=== PATIENT | male | born 1970 | race Native Hawaiian/Other Pacific Islander ===

== ENCOUNTER 2021-03-19 13:53 | Emergency (ER) | payer OTHER ==
[2021-03-19] MEDS ORDERED: HYDROcodone/ACETAMINOPHEN 10-325MG TAB PO ONE (15:00)
[2021-03-19] MEDS ORDERED: TETANUS,DIPH,PERTUSS(ACELL) VACCINE 0.5 ML SYRINGE IM ONE (15:00)
[2021-03-19] MEDS ORDERED: LIDOCAINE 2%/EPINEPHRINE 1:200,000 VIAL (20 ML) INFILTRATI ONE (15:00)
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
[2021-03-19 16:17] VITALS: BP 160/110
== END 2021-03-19 16:46 | disposition home or self-care (01) ==
LOC: ED 13:53
DX: S51.011A Laceration without foreign body of right elbow, initial encounter (principal); S13.4XXA Sprain of ligaments of cervical spine, initial encounter; S00.93XA Contusion of unspecified part of head, initial encounter; S39.92XA Unspecified injury of lower back, initial encounter; S89.91XA Unspecified injury of right lower leg, initial encounter; S49.91XA Unspecified injury of right shoulder and upper arm, initial encounter; Z79.899 Other long term (current) drug therapy; V89.2XXA Person injured in unspecified motor-vehicle accident, traffic, initial encounter; Y93.89 Activity, other specified; Y92.488 Other paved roadways as the place of occurrence of the external cause; Y99.8 Other external cause status
CPT/HCPCS: 70450; 72070; 72100; 72125; 90471; 90715; 99284

== ENCOUNTER 2021-03-28 10:52 | Emergency (ER) | payer SELFPAY ==
[2021-03-28 11:13] VITALS: BP 142/78
--- NOTE | 2021-03-28 12:11 | Emergency Department Report ---
Suture/Staple Removal - [facility] Chief Complaint: Laceration/Recheck/Suture Stated Complaint: SUTURE REMOVAL Time Seen by Provider: 03/28/21 11:46 When Sutures or Demetri Placed: 8-10 Days Ago Wound Location: right elbow ED Review of Systems ROS: Stated complaint: SUTURE REMOVAL Other details as noted in HPI Comment: All other systems reviewed and negative Constitutional: denies: chills, fever Eyes: denies: eye pain, eye discharge, vision change ENT: denies: ear pain, throat pain Respiratory: denies: cough, shortness of breath, wheezing Cardiovascular: denies: chest pain, palpitations Endocrine: no symptoms reported Gastrointestinal: denies: abdominal pain, nausea, diarrhea Genitourinary: denies: urgency, dysuria Musculoskeletal: denies: back pain, joint swelling, arthralgia Skin: denies: rash, lesions Neurological: denies: headache, weakness, paresthesias Psychiatric: denies: anxiety, depression Hematological/Lymphatic: denies: easy bleeding, easy bruising ED Past Medical Hx - Social History Smoking Status: Never Smoker Substance Use Type: None - Medications Home Medications: Home Medications Medication Instructions Recorded Confirmed Last Taken Type Cyclobenzaprine [Flexeril] 10 mg PO QHS PRN #10 tablet 03/19/21 Unknown Rx Naproxen 500 mg PO Q12H PRN #12 tablet 03/19/21 Unknown Rx Sulfamethoxazole/Trimethoprim 1 each PO BID #14 tablet 03/19/21 Unknown Rx [Bactrim DS TAB] Suture Removal Exam - Exam General: Vital signs noted. No distress. Alert and acting appropriately. Wound: No Pathologic Erythema, No Tenderness, No Drainage, No Pus, No Wound Dehiscence Other Systems: All other systems reviewed and are unremarkable. ED Course Vital Signs 03/28/21 11:05 Temperature 98.1 F Pulse Rate 77 Respiratory 14 Rate Blood Pressure 142/78 [Left] O2 Sat by Pulse 99 Oximetry - Reevaluation(s) Reevaluation #1: 03/28/21 12:10 Patient is speaking in full sentences with no signs of distress noted. ED Recheck MDM - Medical Decision Making This is a [age]-year-old male that presents with suture removal. She is stable and was examined by me. Total of 3 sutures has been removed and patient tolerated well. No signs of wound dehiscence, drainage, or cellulitis. Patient was referred to Follow-up with a primary care doctor in 3-5 days or if symptoms worsen and continue return to emergency room as soon as possible. At time of discharge, the patient does not seem toxic or ill in appearance. No acute signs of distress noted. Patient agrees to discharge treatment plan of care. No further questions noted by the patient. Family member present for Kazakh interpretation during physical exam, social mobile and discharge instructions Critical care attestation.: If time is entered above; I have spent that time in minutes in the direct care of this critically ill patient, excluding procedure time. ED Disposition Clinical Impression: Encounter for removal of sutures Disposition: HOME / SELF CARE / HOMELESS Is pt being admited?: No Does the pt Need Aspirin: No Condition: Stable Instructions: Suture Removal, Care After Additional Instructions: Follow-up with a primary care doctor in 3-5 days or if symptoms worsen and continue return to emergency room as soon as possible. Referrals: PRIMARY MD SANDRO [Referring] - 3-5 Days TANIA MURRY MD [Staff Physician] - 3-5 Days Forms: Work/School Release Form(ED) Time of Disposition: 12:11
== END 2021-03-28 12:38 | disposition home or self-care (01) ==
LOC: ED 10:52
DX: Z48.02 Encounter for removal of sutures (principal)